=== PATIENT | female | born 1950 ===

== ENCOUNTER → 2023-09-10 13:17 | Outpatient (REF) | payer MEDICARE, SELFPAY | LOC: WDC 13:17 | PROVIDERS: ATTENDING PHYSICIAN Physician Assistant; FAMILY PHYSICIAN Family Medicine | DX: Z12.31 Encounter for screening mammogram for malignant neoplasm of breast (principal) | CPT/HCPCS: 77063; 77067 ==

== ENCOUNTER 2023-09-30 21:23 | Inpatient (IN) | payer MEDICARE, SELFPAY ==
[2023-09-30 16:37] VITALS: BP 168/86
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
[2023-09-30] MEDS: MORPHINE SULFATE 4 MG IV (18:28)
[2023-09-30 18:37] LABS: % Basophils 0.2 % (0-2); % Eosinophils 0.1 % (0-6); % Immature Granulocytes 0.3 % (0-0.5); % Lymphocytes 7.5 % (20.5-51.1); % Monocytes 4.2 % (1.7-9.3); % Neutrophils 87.7 % (42.2-75.2); Absolute Monocytes 0.6 10^3/uL (0.1-0.6); Absolute Neutrophils 11.7 10^3/uL (1.4-6.5); Hematocrit 39.4 % (37.0-47.0); Hemoglobin 13.6 g/dL (12.0-16.0); Mean Corp Hgb Conc. 34.5 g/dL (33.0-37.0); Mean Corpuscular Hgb 30.4 pg (27.0-31.0); Mean Corpuscular Volume 88.1 fL (81.0-99.0); Mean Platelet Volume 10.2 fL (7.4-10.4); Nucleated Red Blood Cells % 0 %; Platelet Count 222 10^3/uL (130-400); Red Blood Cell Count 4.47 10^6/uL (4.20-5.40); Red Cell Dist. Width 13.2 % (11.5-14.5); White Blood Cell Count 13.3 10^3/uL (4.8-10.8)
[2023-09-30 18:52] LABS: Blood Urea Nitrogen 24 mg/dl (7-17); Calcium 10.1 mg/dl (8.4-10.2); Carbon Dioxide 24 mmol/L (22-30); Chloride 102 mmol/L (98-107); Glucose 125 mg/dl (70-99); Potassium 4.1 mmol/L (3.5-5.1); Sodium 133 mmol/L (135-145); eGFR > 60.00
--- NOTE | 2023-09-30 19:48 | W.PN.UPDATE ---
Update Note
Progress Note Update
Consulted on this patient this PM. Patient will be seen in AM. Radiographs reviewed. Plan for patient to be admitted to hospitalist service for care of her left IT hip fracture. Will discuss treatment options with the patient tomorrow AM. Have
tentatively placed her on the OR schedule for tomorrow. NPO after MN.
[2023-09-30 20:01] VITALS: BP 147/84
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
[2023-09-30 21:26] VITALS: BP 110/63
[2023-09-30] MEDS: DILAUDID 0.5 MG IV (21:30)
[2023-09-30 22:22] VITALS: BP 156/84; BMI 27.3
[2023-09-30] MEDS: TYLENOL 1000 MG PO (22:43)
[2023-09-30] MEDS: LOPRESSOR 50 MG PO (22:44)
--- NOTE | 2023-09-30 23:00 | PTCARENOTE ---
Pt transferred from ED. Pt L hip fx. Pt slid over into bed with assistance. Pt AAOX3, able to make needs known, VSS. Pt oriented to unit, call tucker within reach. Will continue with current plan.
[2023-10-01] VITALS (10 sets, daily range): BP systolic 91–154; BP diastolic 50–71
[2023-10-01] MEDS: DILAUDID 0.5 MG IV (03:52)
[2023-10-01 07:45] LABS: Hematocrit 36.9 % (37.0-47.0); Hemoglobin 12.1 g/dL (12.0-16.0); Mean Corp Hgb Conc. 32.8 g/dL (33.0-37.0); Mean Corpuscular Hgb 29.7 pg (27.0-31.0); Mean Corpuscular Volume 90.7 fL (81.0-99.0); Mean Platelet Volume 10.2 fL (7.4-10.4); Platelet Count 184 10^3/uL (130-400); Red Blood Cell Count 4.07 10^6/uL (4.20-5.40); Red Cell Dist. Width 13.2 % (11.5-14.5); White Blood Cell Count 7.1 10^3/uL (4.8-10.8)
[2023-10-01] MEDS: COLACE PO ×3 (08:15→21:16)
[2023-10-01] MEDS: TOPROL XL 50 MG PO ×2 (08:18→21:14)
[2023-10-01] MEDS: TYLENOL 1000 MG PO ×2 (08:18→15:48)
[2023-10-01 08:28] LABS: Blood Urea Nitrogen 21 mg/dl (7-17); Calcium 9.1 mg/dl (8.4-10.2); Carbon Dioxide 25 mmol/L (22-30); Chloride 103 mmol/L (98-107); Estimated Creatinine Clearance 80 ml/min; Glucose 94 mg/dl (70-99); Potassium 4.2 mmol/L (3.5-5.1); Sodium 134 mmol/L (135-145); eGFR > 60.00
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
--- NOTE | 2023-10-01 11:56 | W.PN.HOSP.TC ---
Today's Communication/Plan
-
for OR today
Assessment / Plan
Assessment / Plan
pt is a 73 year old female
Left Hip Fracture--due to mechanical fall--cont pain control--apprec ortho--for OR today�- Patient is average risk for complications related to surgery / anesthesia compared to an otherwise healthy individual of her age- OK to proceed to OR without
additional pre-op evaluation(s)�- Post-op PT / OT evaluations.
Benign Hypertension�- Stable.� Continue metoprolol with holding parameters.
DVT Prophylaxis:� SCDs
Code Status:� Full
Anticipated Discharge: > 48 hours
Subjective/Interval History
-
Date of Service: October 01, 2023
pt waiting for surgery
Objective Data
-
Labs:
Laboratory Results
10/01/23
06:52
WBC 7.1
Hgb 12.1
Hct 36.9 L
Plt Count 184
Sodium 134 L
Potassium 4.2
Chloride 103
Carbon Dioxide 25
BUN 21 H
Creatinine 0.5 L
Glucose 94
Calcium 9.1
Vital Signs:
max temp for 24 hours
09/30/23
20:01
Temp 99.1 F
Vital Signs
Temp Pulse Resp BP Pulse Ox
98.2 F 58 18 154/71 98
10/01/23 07:00 10/01/23 08:18 10/01/23 07:00 10/01/23 08:18 10/01/23 07:00
I&O
09/30/23 10/01/23 10/02/23
06:59 06:59 06:59
Output Total 500 / 500 300 / 300
Balance -500 / -500 -300 / -300
Review of Systems
-
All other systems: Reviewed and negative
Physical Exam
-
General: Well Developed, Well Nourished and No Apparent Distress
HEENT: Normocephalic and Atraumatic
Respiratory: Clear to Auscultation; Negative Wheezes or Rhonchi
Cardiac: Regular Rhythm and S1/S2; Negative Murmur
GI: Soft, Nontender, Nondistended and Normal Bowel Sounds
Musculoskeletal: No Clubbing, No Cyanosis, No Edema and Other (left leg shortened and externally rotated)
Skin: Warm
Neuro: Awake
Psych: Calm
--- NOTE | 2023-10-01 11:59 | PTCARENOTE ---
Received patient this am AAOx3. NPO for OR. Pt complained of pain in Left Hip. Pt given scheduled Tylenol. Made patient comfortable. Cont to assess patient status. Report called to OR and patient sent at 1259.
[2023-10-01] MEDS: NORMOSOL-R 1000 IV (15:25)
[2023-10-01] MEDS: DILAUDID 0.25 MG IV ×2 (15:27→15:38)
--- NOTE | 2023-10-01 16:09 | PTCARENOTE ---
Pt being transferred to [address] [place] [address] post op. Report called to RN
--- NOTE | 2023-10-01 17:11 | PTCARENOTE ---
pt received to room 2119 from the PACU at 1615. pt arrived via bed, drowsy but arousable. denies pain. c/o itchy nose from oxygen tubing. pt oriented to room and plan of care. family at bedside. assessment as documented. neurovascular check LLE
WNL. will observe.
--- NOTE | 2023-10-01 18:14 | PTCARENOTE ---
at 1745, upon entering room, pt was found sitting on the side of the bed, dressed in a night gown, still connected to IVF and BP cuff. pt stated the bed was too uncomfortable to stay in it. pt had hospital slippers and foot pumps removed and
placed her own socks on. pt re-oriented to surroundings and plan of care and call tucker with verbalized understanding. pt assisted to chair- soft care overlay placed on bed and bed alarm strip placed. pt assisted to return to hospital gown and
return to bed w/RW and assistance of 2. explained bed alarm and need for monitoring for pt safety. pt verbalized understanding. will observe.
[2023-10-01] MEDS: ASPIRIN 325 MG PO (21:14)
[2023-10-01] MEDS: ANCEF 5 IV (21:27)
[2023-10-02] MEDS: NORMOSOL-R IV ×2 (02:41→13:49)
[2023-10-02 03:50] VITALS: BP 113/59
[2023-10-02 05:47] LABS: Hematocrit 32.5 % (37.0-47.0); Hemoglobin 10.8 g/dL (12.0-16.0); Mean Corp Hgb Conc. 33.2 g/dL (33.0-37.0); Mean Corpuscular Hgb 30.2 pg (27.0-31.0); Mean Corpuscular Volume 90.8 fL (81.0-99.0); Mean Platelet Volume 10.5 fL (7.4-10.4); Platelet Count 186 10^3/uL (130-400); Red Blood Cell Count 3.58 10^6/uL (4.20-5.40); Red Cell Dist. Width 13.2 % (11.5-14.5); White Blood Cell Count 8.9 10^3/uL (4.8-10.8)
[2023-10-02 06:11] LABS: Blood Urea Nitrogen 19 mg/dl (7-17); Calcium 8.5 mg/dl (8.4-10.2); Carbon Dioxide 23 mmol/L (22-30); Chloride 104 mmol/L (98-107); Estimated Creatinine Clearance 80 ml/min; Glucose 151 mg/dl (70-99); Potassium 4.5 mmol/L (3.5-5.1); Sodium 133 mmol/L (135-145); eGFR > 60.00
[2023-10-02] MEDS: ANCEF 5 IV (06:12)
[2023-10-02 07:55] VITALS: BP 129/94
[2023-10-02] MEDS: TOPROL XL 50 MG PO (08:00)
[2023-10-02] MEDS: COLACE 100 MG PO (08:01)
[2023-10-02] MEDS: ASPIRIN 325 MG PO (08:01)
--- NOTE | 2023-10-02 09:04 | W.PN.ORTHO ---
Today's Communication / Plan
-
73-year-old female postop day 1 status post left hip cephalomedullary nail fixation with Dr. Feliciano
-Weightbearing as tolerated to left lower extremity with assist devices as indicated
-PT/OT/discharge planning
-DVT prophylaxis: Recommend aspirin 325 mg daily for 30 days unless recommended otherwise by primary
-Diet per primary
-Pain controlled on current regimen
Orthopedic surgery will continue to follow-up
Assessment
.
Distal Motor Intact: Yes
Dressing:
Clean, dry and intact.
Plan
.
Surgery / Date: 01 October [address] Feliciano
DVT Prophylaxis: Aspirin
Activity:
Out of bed.
PT/OT
Subjective
.
.:
Patient resting comfortably. Patient was ambulatory at time of visit out of bed to chair.
Vital Signs and Labs
.
Vital Signs and Labs:
Lab Results
10/02/23 05:26
10/02/23 05:26
Temp Pulse Resp BP Pulse Ox
98.7 F 82 19 129/94 96
10/02/23 07:55 10/02/23 08:00 10/02/23 07:55 10/02/23 08:00 10/02/23 07:55
Physical Exam
-
Examination of the left lower extremity shows dressings intact without strikethrough and no erythema surrounding the borders. Neurovascular intact L3-S1
[2023-10-02 10:00] VITALS: BMI 27.6
--- NOTE | 2023-10-02 10:25 | W.PN.HOSP.TC ---
Addendum entered and electronically signed by Tania Villalobos MD 10/02/23 14:13:
total DC time 35 min
Original Note:
Today's Communication/Plan
-
pt adamant about NOT going to SNF, she can likely DC home with HH after working with PT OT
Assessment / Plan
Assessment / Plan
pt is a 73 year old female
Left Hip Fracture due to mechanical fall s/p ORIF Left hip 09/30, PT OT eval post op for discharge planning, DVT ppx with full dose ASA per ortho
Acute post op blood loss anemia, monitor Hgb
Benign Hypertension�- Stable.� Continue metoprolol with holding parameters.
DVT Prophylaxis:�ASA
Code Status:� Full
DW at bedside
Anticipated Discharge: Today
Subjective/Interval History
-
Date of Service: October 02, 2023
Objective Data
-
Labs:
Laboratory Results
10/02/23
05:26
WBC 8.9
Hgb 10.8 L
Hct 32.5 L
Plt Count 186
Sodium 133 L
Potassium 4.5
Chloride 104
Carbon Dioxide 23
BUN 19 H
Creatinine 0.6
Glucose 151 H
Calcium 8.5
Vital Signs:
Vital Signs
Temp Pulse Resp BP Pulse Ox
37.1 C 82 19 129/94 96
10/02/23 07:55 10/02/23 08:00 10/02/23 07:55 10/02/23 08:00 10/02/23 07:55
I&O
10/01/23 10/02/23 10/03/23
06:59 06:59 06:59
Intake Total 1720 / 1720
Output Total 500 / 500 300 / 300
Balance -500 / -500 1420 / 1420
[2023-10-02 11:41] VITALS: BP 146/76
--- NOTE | 2023-10-02 12:26 | CM ---
Patient seen at bedside with patient . Patient states that she lives with in a 2 story home with steps to enter. Patient PCP Dr. Porter and PCP is the ilya [facility]. Patient stated that she will accept walker and commode
from PT and declined home health PT/OT. Patient willing to accept outpatient therapy and per nursing has a script for patient to take. PT recommendation is for home VN/PT but patient declined service. Patient indicated that he had
everything at this time and patient is very eager to go home. CM will continue to follow for discharge planning needs.
Plan; home with outpatient PT; walker and commode
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
[2023-10-02 15:41] VITALS: BP 123/61
--- NOTE | 2023-10-02 16:10 | PTCARENOTE ---
Patient's discharge placed by attending hospitalist, Dr. Villalobos; Discharge orders noted to be missing information for orthopedic follow-up and instruction, reached out to Michael Carrillo PA-C regarding discharge instructions at 1241; Reached out to
Dr. Villalobos at 1331 regarding follow-up information who deferred to ortho group; Reached out to contact officer doctor for [facility] - Dr. Garcia at [phone], Dr. Garcia advised he would reach out to PA; Patient and spouse unable to wait any
further past 1530; Gave patient current discharge paperwork and gave patient and spouse phone number for [facility] to follow-up with, spouse stated he would call Thursday; Patient and spouse left with prescription for outpatient
physical therapy and discharge instructions; At 1615 PA for ortho group stated he would have office reach out to patient
== END 2023-10-02 16:24 | disposition home health service (06) | DRG 481 ==
LOC: 2 SOUTH 21:23
PROVIDERS: Internal Medicine; ADMITTING PHYSICIAN Hospitalist; ATTENDING PHYSICIAN Internal Medicine; CONSULT PHYSICIAN Orthopaedic Surgery; EMERGENCY PHYSICIAN Emergency Medicine; FAMILY PHYSICIAN Physician Assistant
PROC: 0QS706Z Reposition Left Upper Femur with Intramedullary Internal Fixation Device, Open Approach (ICD-10-PCS; 2023-10-01)
DX: S72.142A Displaced intertrochanteric fracture of left femur, initial encounter for closed fracture (principal); D62 Acute posthemorrhagic anemia; I10 Essential (primary) hypertension; E78.00 Pure hypercholesterolemia, unspecified; V18.4XXA Pedal cycle driver injured in noncollision transport accident in traffic accident, initial encounter; Y93.55 Activity, bike riding; Y92.410 Unspecified street and highway as the place of occurrence of the external cause; Z88.0 Allergy status to penicillin
CPT/HCPCS: 73110; 73502; 73552; 76000; 80048; 83735; 85025; 85027; 86850; 86900; 86901; 96374; 97116; 97163; 97167; 97535; 99284; C1713; C1769

== ENCOUNTER → 2024-05-17 09:00 | Outpatient (REF) | payer MEDICARE, SELFPAY | LOC: RAD 09:00 | PROVIDERS: ATTENDING PHYSICIAN Physician Assistant; REFERRING PHYSICIAN Orthopaedic Surgery | DX: M85.89 Other specified disorders of bone density and structure, multiple sites (principal) | CPT/HCPCS: 77080 ==